=== PATIENT | female | born 1980 | race Two or more races ===

== ENCOUNTER 2017-12-13 10:56 | Emergency (ER) | payer SELFPAY ==
[~2017-12-13] VITALS: Ht 165.1 cm; Wt 63.5 kg
[2017-12-13] MEDS ORDERED: IBUPROFEN 600 MG TABLET PO ONE ×2 (11:00→11:04)
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
[2017-12-13 11:57] VITALS: BP 120/66
--- NOTE | 2017-12-13 11:58 | NUR ---
Patient discharged to home in stable condition. Written and verbal after care instructions given. Patient verbalizes understanding of instruction. pt ambulatory with a steady gait VITAL SIGNS WITHIN NORMAL LIMITS.
== END 2017-12-13 11:57 | disposition home or self-care (01) ==
LOC: ER 10:57
DX: S20.219A Contusion of unspecified front wall of thorax, initial encounter (principal); V49.59XA Passenger injured in collision with other motor vehicles in traffic accident, initial encounter; Y93.89 Activity, other specified; Y92.413 State road as the place of occurrence of the external cause; Y99.8 Other external cause status
CPT/HCPCS: 71045-TC; 73564-TC; A4606; Z7610